=== PATIENT | male | born 1935 | race Caucasian/White ===

== ENCOUNTER 2019-02-04 21:15 | Emergency (ER) | payer MEDICARE, MEDICAID ==
[~2019-02-04] VITALS: Ht 175.3 cm; Wt 78.0 kg
--- NOTE | 2019-02-04 21:40 | NUR ---
[facility] SENT BY PMD C/O AGITATION. PER EMT TRANSPORT PT WAS COMBATIVE AND HITTING SN[facility] STAFF MEMBERS. PT C/O LLE PAIN. PT AAOX2, VSS. RR EVEN & UNLABORED. DENIES CP, SOB, DIZZINESS, N/V, WEAKNESS @ THIS TIME. WILL CONT TO MONITOR.
[2019-02-04 21:43] LABS: BASOPHILS # (AUTO) 0.1 /CMM (0.0-0.2); BASOPHILS % (AUTO) 1.1 % (0.0-2.0); EOSINOPHILS % (AUTO) 6.6 % (0.0-6.0); HEMATOCRIT 42 % (39-51); HEMOGLOBIN 14.1 g/dL (13.5-17.5); LYMPHOCYTES # (AUTO) 1.1 /CMM (0.8-4.8); LYMPHOCYTES % (AUTO) 16.2 % (20.0-44.0); MEAN CORPUSCULAR HGB CONC 34 g/dl (31.0-36.0); MEAN CORPUSCULAR VOLUME 93 fL (80-96); MONOCYTES # (AUTO) 0.6 /CMM (0.1-1.30); MONOCYTES % (AUTO) 8.8 % (2.0-12.0); NEUTROPHILS # (AUTO) 4.6 /CMM (1.8-8.9); NEUTROPHILS % (AUTO) 67.3 % (43.0-81.0); PLATELET COUNT (AUTO) 193 /CMM (150-450); WHITE BLOOD COUNT (AUTO) 6.8 K/uL (4.3-11.0)
[2019-02-04 21:56] LABS: ALANINE AMINOTRANSFERASE 17 U/L (12-78); ALBUMIN 3.2 g/dL (3.4-5.0); ALCOHOL, BLOOD < 3 mg/dL (0-0); ALKALINE PHOSPHATASE 65 U/L (46-116); ASPARTATE AMINOTRANSFERASE 15 U/L (15-37); BILIRUBIN,DIRECT 0.1 mg/dL (0.0-0.2); BILIRUBIN,TOTAL 0.2 mg/dL (0.2-1.0); CALCIUM, SERUM 8.4 mg/dL (8.5-10.1); CARBON DIOXIDE 28 mmol/L (21-32); CHLORIDE 106 mmol/L (98-107); CREATININE 0.8 mg/dL (0.6-1.3); GLUCOSE 125 mg/dL (74-106); SODIUM SERUM 140 mmol/L (136-145); TOTAL PROTEIN, SERUM 6.6 g/dL (6.4-8.2); UREA NITROGEN, BLOOD 16 mg/dL (7-18)
[2019-02-04 21:57] LABS: ACETAMINOPHEN < 2 ug/ml (10-30); SALICYLATE 1.3 mg/dL (2.8-20.0)
--- NOTE | 2019-02-04 22:46 | NUR ---
CALLED FOR GPS BED
[2019-02-04 22:47] LABS: APPEARANCE,URINE Clear (CLEAR); BILIRUBIN,URINE Negative (NEGATIVE); BLOOD, URINE Negative Ery/uL (NEGATIVE); COLOR,URINE Yellow (YELLOW); KETONES,URINE Negative (NEGATIVE); LEUKOCYTE ESTERASE ,URINE Negative (NEGATIVE); NITRITE, URINE Negative (NEGATIVE); PH,URINE 5.5 (5.0-8.0); PROTEIN,URINE Negative (NEGATIVE); UGLUCOSE Negative (NEGATIVE); UROBILINOGEN,URINE 0.2 EU/dL (0.2)
--- NOTE | 2019-02-04 23:14 | NUR ---
CALLED ART FOR PSYCH EVAL WAS TOLD TO RENATA BACK IN 10 MIN
--- NOTE | 2019-02-04 23:59 | NUR ---
ART. PRESIDENT ERGONOMIC CONSULTING, ARRIVED AND IS REVIEWING PT'S CHART.
--- NOTE | 2019-02-05 00:32 | NUR ---
PT WAS EVALUATED BY ELSA EDWARDS LCSW. PT APPEARS CALM AND COOPERATIVE.
--- NOTE | 2019-02-05 00:38 | NUR ---
PT APPEARS TO BE SLEEPING SOUNDLY WITH NO S/S OF PAIN OR DISTRESS NOTED. PT IS ON THE MONITOR AND CONTINUOUS PULSE OX. VSS. WILL CONTINUE TO MONITOR THE PT.
[2019-02-05] MEDS ORDERED: IBUPROFEN 600 MG TABLET PO ONE (00:40)
[2019-02-05] MEDS: IBUPROFEN 600 MG TABLET PO ONE (00:50)
--- NOTE | 2019-02-05 00:50 | NUR ---
Dr. Cardenas at bedside w/ Delgado, tech, explaining need for US Scrotum. Patient refusing US Scrotum, denies any pain at this time.
--- NOTE | 2019-02-05 01:31 | NUR ---
CALLING [facility] ([address] [phone]) AT . INFORMING THE FACILITY THAT THE PT WAS EVALUATED AND IS CALM AND COOPERATIVE AND IS RETURNING TO THEM. PT HAS A LEFT INGUINAL HERNIA AND A LEFT HEEL WOUND. L HEEL WOUND DRESSING WAS REMOVED AND WOUND WAS CLEANED AND REDRESSED BY GUY REGAN.
--- NOTE | 2019-02-05 01:36 | NUR ---
SPOKE TO EDMUNDO MACIEL RE: PT BEING MEDICALLY CLEARED AND EVALUATED. PT IS RETURNING TO [facility].
--- NOTE | 2019-02-05 01:39 | NUR ---
CALLING LAINE RE: TRANSPORT BACK TO [facility].
--- NOTE | 2019-02-05 01:50 | NUR ---
[facility] WOULD NOT TRANSPORT THE PT. WAS INFORMED BY YAA AT [facility] TO CALL [facility] AT . CALLED AND SPOKE TO ESDRAS. RESERVATION NUMBER:[id number]
--- NOTE | 2019-02-05 02:14 | NUR ---
C/B [facility] ETA 0400.
--- NOTE | 2019-02-05 02:30 | NUR ---
Pt resting supine in bed w/ resp even & unlabored, able to turn self in bed w/ no acute distress noted. Bed low to ground w/ siderails up for safety. Will continue to monitor.
--- NOTE | 2019-02-05 03:25 | NUR ---
PT APPEARS TO BE SLEEPING SOUNDLY WITH NO S/S OF PAIN OR DISTRESS. WILL CONTINUE TO MONITOR THE PT.
--- NOTE | 2019-02-05 04:50 | NUR ---
REPORT GIVEN [facility] EMT. Patient discharged to home in stable condition. Written and verbal after care instructions given. COPY OF THE LABS GIVEN TO EMT WITH D/C PAPERWORK. VSS. NAD NOTED. PT IS CALM AND COOPERATIVE.
[2019-02-05 05:12] VITALS: BP 138/74
== END 2019-02-05 05:13 | disposition home or self-care (01) ==
LOC: ER 21:20
DX: F03.90 Unspecified dementia, unspecified severity, without behavioral disturbance, psychotic disturbance, mood disturbance, and anxiety (principal); I10 Essential (primary) hypertension; J44.9 Chronic obstructive pulmonary disease, unspecified; F20.9 Schizophrenia, unspecified; F41.9 Anxiety disorder, unspecified; Z88.2 Allergy status to sulfonamides; Z88.1 Allergy status to other antibiotic agents; Z88.9 Allergy status to unspecified drugs, medicaments and biological substances
CPT/HCPCS: 36415; 80048; 80076; 80305; 80307; 80329; 81001; 85025; 87081; 99283; G0480; 81000-TC